=== PATIENT | male | born 1935 | race Caucasian/White ===

== ENCOUNTER 2016-05-25 09:54 | Inpatient (IN) | payer OTHER, MEDICARE ==
[2016-05-25] VITALS (9 sets, daily range): BP systolic 140–185; BP diastolic 72–82; PULSE 96–116; RESP 16–18; TEMP 97.8–98; O2SAT 94–97
[~2016-05-25] VITALS: Ht 172.7 cm; Wt 96.4 kg
[~2016-05-25 09:54] MED LIST: ALPR-138 PO; ASPI81; DOXE25CA2; MEVA40TA6; NABU750T; TAMS0.4C67 PO; VENTAER INH; Z.0.OXYGEN INH
[2016-05-25] MEDS ORDERED: TAMS5CAP PO (14:56)
[2016-05-25] MEDS ORDERED: VENTAER INH (14:56)
[2016-05-25] MEDS ORDERED: XANA1TAB2 PO (14:56)
[2016-05-25] MEDS ORDERED: OMEP20TA PO (14:56)
[2016-05-25] MEDS ORDERED: VITA10007 PO (14:56)
[2016-05-25] MEDS ORDERED: DOXE25CA2 PO (14:56)
[2016-05-25] MEDS ORDERED: MULT1TAB84 PO (14:56)
[2016-05-25] MEDS ORDERED: CALCTAB80 PO (14:56)
[2016-05-25] MEDS ORDERED: LIPI10TA PO (14:56)
[2016-05-25] MEDS ORDERED: DILT300C3 PO (14:56)
[2016-05-25] MEDS ORDERED: LATA0.002 EACH EYE (14:56)
[2016-05-25] MEDS ORDERED: ASPI81TA81 PO (14:56)
[2016-05-25] MEDS ORDERED: ADVA250A INH (14:56)
[2016-05-25] MEDS ORDERED: ASPIRIN 325 MG TAB PO SCH (15:00)
[2016-05-25] MEDS ORDERED: GLIM4TAB PO (15:06)
--- NOTE | 2016-05-25 15:34 | MB ---
cc: SWAPNIL SANDERS MD DATE OF CONSULTATION: 05/25/2016 REASON FOR ADMISSION: Non-ST elevation myocardial infarction with severe coronary disease requiring revascularization. HISTORY OF PRESENT ILLNESS: Mr. Acosta is a 80 year-old patient of mine who does have a history of hypertension, hyperlipidemia and chronic obstructive pulmonary disease. He apparently was experiencing ten days of intermittent chest pain that progressed and precipitated his admission to [facility]. The patient was found to have elevated troponin and underwent a cardiac catheterization which revealed a 50% left main and 90% mid circumflex stenosis. The patient was felt to be too high risk for intervention at [facility] and was subsequently transferred here to [place]. The patient is currently pain free. PAST MEDICAL HISTORY: 1. Significant for hypertension. 2. Hyperlipidemia. 3. Chronic obstructive pulmonary disease. 4. Sinus tachycardia. 5. Anxiety. 6. Obesity. 7. Benign prostatic hypertrophy. 8. Chronic kidney disease with baseline creatinine of 1.2. OUTPATIENT MEDICATIONS: Include; 1. Multiple vitamins. 2. Latanoprost 3. Xanax 1 mg p.o. twice a day. 4. Doxepin 25 mg twice a day. 5. Diltiazem ER 300 mg per day. 6. Omeprazole. 7. Atorvastatin 10 mg q hs. 8. Flomax 0.4 mg q hs. 9. Albuterol. 10. Advair. 11. Cyclosporin ophthalmiac emulsion. ALLERGIES NO KNOWN DRUG ALLERGIES FAMILY HISTORY: Noncontributory. SOCIAL HISTORY: The patient is a former smoker. REVIEW OF SYSTEMS Besides as mentioned in the history of present illness all 12 systems are negative. PHYSICAL EXAMINATION: VITAL SIGNS: Stable. IN GENERAL: He is an obese man who is in no apparent distress. NECK: His neck is free from jugular venous distention. LUNGS: The lungs are bilaterally clear to auscultation. CARDIOVASCULAR SYSTEM: He has a normal S1, S2. I did not appreciate any murmurs, rubs or gallops. ABDOMEN: The abdomen is soft. EXTREMITIES: The extremities are free from edema. CARDIAC CATHETERIZATION FILMS: These were reviewed with Dr. Blank. There is a mildly calcified left main with a mid 50% stenosis, it does give rise to an left anterior descending and circumflex. The left anterior descending has mild luminal irregularities. The circumflex otitis media does have a mid 99% stenosis with NANDINI 1 flow distally. This is about a 2-0 vessel. The right coronary is a dominant to hyper dominant vessel with mild luminal irregularities. Lab values from [facility] do show a blood urea nitrogen of 20 with a creatinine of 1.2, potassium of 4.2. The troponin value is not available to me. His glucose is 123. IMPRESSIONS: 1. Non-ST elevation, Myocardial infarction. The patient has had chest pain and elevated troponin, consistent with non-ST elevation myocardial infarction. He underwent catheterization which revealed a culprit circumflex lesion. I discussed the patient with Dr. Blank who feels that the patient would be best suited by stenting the circumflex and medially managing the left main. I agree this is the most reasonable approach as the left main does not appear to be flow limiting lesion. The risks, benefits and alternatives were discussed with the patient and he does wish to proceed despite a several percent risks of , myocardial infarction, cerebrovascular accident, bleeding and further renal impairment. We will schedule him for later today. 2. Hyperlipidemia, we will continue him on a statin. 3. Possible diabetes - the patients glucose was elevated and this will be managed by [facility]. Swapnil Sanders M.D. Kina /2:50 PM /3:00 PM
--- NOTE | 2016-05-25 15:48 | MB ---
cc: EMMA VARGHESE DATE OF CONSULTATION: 05/25/2016 HISTORY OF PRESENT ILLNESS: 80-year-old male patient of Dr. Cortes and Dr. Umu Lipscomb presented to the [facility] Emergency Department complaining of chest pain that started about ten days ago and then was worsening over the last ten days radiated to his left arm. He was found to have NSTEMI, elevated troponins at 1.15, pain occurred also with minimal exertion. Chronic shortness of breath. No nausea or vomiting. He underwent cardiac cath today by Dr. Adam Higgins and was found to have a 50% left main, 90% left circumflex with an ejection fraction of 50% to 60%. Cardiac risk factors include age, obesity, hypertension, hyperlipidemia, diabetes mellitus. We were consulted to evaluate for possible need for coronary artery bypass grafting to the left circumflex and/or the left anterior descending. PAST MEDICAL HISTORY: The past medical history includes: 1. COPD. 2. Apparent prior coronary artery disease with myocardial infarction in the past. 3. Irregular heart rhythm. 4. Diabetes mellitus. 5. Benign prostate hypertrophy. 6. Hypertension. 7. Hyperlipidemia. 8. He has had back surgery in the past. 9. Tonsillectomy. ALLERGIES: NO KNOWN ALLERGIES. HOME MEDICATIONS: 1. Vitamin C. 2. Vitamin D. 3. Aspirin 81. 4. Xalatan eye drops. 5. Xanax one p.o. three times a day. 6. Doxepin. 7. Diltiazem. 8. Omeprazole. 9. Atorvastatin. 10. Flomax. 11. Albuterol inhaler. 12. Advair Diskus. 13. Restasis eye drops. FAMILY HISTORY: Family history of heart disease. SOCIAL HISTORY: . Smokes one to two cigarettes and has smoked up to 1-1/2 packs for about 65 years. Retired in management. REVIEW OF SYSTEMS: GENERAL: In general no night sweats, fevers, heat and cold intolerance. SKIN: No psoriasis, itching or hives. HEAD, EYES, EARS, NOSE, THROAT: No blurred vision, hearing loss. RESPIRATORY: Positive for chronic shortness of breath. Occasional cough. CARDIOVASCULAR: As above in the history of present illness. GASTROINTESTINAL: No diarrhea, vomiting. GENITOURINARY: No burning, frequency, urgency. MEDICINE TEACHER: No history of TIA, CVA, seizure disorder. MUSCULOSKELETAL: No joint pain, stiffness. ENDOCRINE: Positive for diabetes. PHYSICAL EXAMINATION: VITAL SIGNS: On exam, blood pressure 112/60, heart rate of 102, temperature max 97. GENERAL: Patient is awake, alert and in no acute distress. HEAD, EYES, EARS, NOSE, THROAT: Head is normocephalic, atraumatic. Pupils equal and reactive. Oral mucosa pink, moist. NECK: The neck is supple. No JVD. HEART: Heart sounds S1, S2, regular rate and rhythm. No rubs, murmurs, gallops. LUNGS: Diminished in the bases, otherwise clear to auscultation. ABDOMEN: Abdomen is obese, soft and nontender. No masses or organomegaly. EXTREMITIES: Trace edema with good distal pulses. LABORATORY DATA: Lab work includes hemoglobin 13, hematocrit of 40, white cell count 4.7, platelet count 179,000. Sodium 137, potassium 3.9 BUN of 15, creatinine 1.1, glucose 131. Troponin 1.15. EKGS: EKG showed some S-T depression in the lateral leads. IMPRESSION: This is a 80-year-old patient with status post NSTEMI with elevated troponins and an abnormal EKG currently pain-free. The cardiac cath films have been reviewed by Dr. Stubbs and Dr. Emma Varghese. PLAN: At this time, the plan will be for percutaneous coronary intervention with stenting of the left circumflex. We will be available if needed if need for any coronary vascular surgery intervention required. Dictated by MARQUES Lui. MD JOSE Orellana/VINICIO /2:33 PM /3:47 PM
[2016-05-25] MEDS ORDERED: HEPARIN-NS/PF INJ 500 ML ONE (16:49)
[2016-05-25] MEDS ORDERED: MIDAZOLAM HCL 2 MG/2 ML VIAL ONE (17:16)
[2016-05-25] MEDS ORDERED: HEPARIN SODIUM - IV 10,000 UNITS/10 ML VIAL ONE (17:21)
[2016-05-25] MEDS ORDERED: BIVALIRUDIN 250 MG VIAL ONE (17:21)
[2016-05-25] MEDS ORDERED: STERILE WATER FOR INJECTION 10 ML VIAL ONE (17:22)
[2016-05-25] MEDS ORDERED: CLOPIDOGREL 300 MG TAB ONE (17:51)
[2016-05-25] MEDS ORDERED: IOHEXOL 350 MG/ML 100 ML BTL (for Cath Lab) OTHER ONE (18:00)
[2016-05-25] MEDS ORDERED: PRASUGREL 10 MG TAB ONE (18:00)
[2016-05-25] MEDS ORDERED: SODIUM CHLOR 0.9% 250 ML INJ 250 ML IV PRN (18:15)
[2016-05-25] MEDS ORDERED: LORazepam 2 MG/ML VIAL IV PRN (18:15)
[2016-05-25] MEDS ORDERED: ONDANSETRON HCL 4 MG/2 ML VIAL IV PRN (18:15)
[2016-05-25] MEDS ORDERED: oxyCODONE/ACETAMINOPHEN 5 MG/325 MG TAB PO PRN (18:15)
[2016-05-25] MEDS ORDERED: LIDOCAINE HCL 1% 50 ML VIAL INFIL PRN (18:15)
[2016-05-25] MEDS ORDERED: oxyCODONE/ACETAMINOPHEN 10 MG/325 MG TAB PO PRN (18:15)
[2016-05-25] MEDS ORDERED: SODIUM CHLORIDE 0.9% FLUSH 5 ML FLUSH IVF PRN (18:15)
[2016-05-25] MEDS ORDERED: ACETAMINOPHEN 325 MG TAB PO PRN (18:15)
[2016-05-25] MEDS ORDERED: METOCLOPRAMIDE HCL 10 MG/2 ML VIAL IV PRN (18:15)
[2016-05-25] MEDS ORDERED: ALPRAZolam 1 MG TAB PO PRN (18:15)
[2016-05-25] MEDS ORDERED: MORPHINE SULFATE 4 MG/ML INJ IV PUSH PRN (18:15)
[2016-05-25] MEDS ORDERED: ATROPINE SULFATE 1 MG/ML VIAL IV PRN (18:15)
[2016-05-25] MEDS ORDERED: ALBUTEROL SULFATE 90 MCG/ACT HFA 8 GM INHALER INH PRN (18:15)
[2016-05-25] MEDS ORDERED: MISC INFORMATION XX ONE (18:15)
[2016-05-25] MEDS ORDERED: PRASUGREL 10 MG TAB PO ONE (18:15)
[2016-05-25] MEDS ORDERED: BACITRACIN OINT 0.9 GM PKT TOP ONE (18:45)
[2016-05-25] MEDS ORDERED: cloNIDine HCL 0.2 MG TAB PO PRN (20:15)
[2016-05-25] MEDS: SODIUM CHLORIDE 0.9% FLUSH 5 ML FLUSH IVF SCH (20:36)
[2016-05-25] MEDS ORDERED: TAMSULOSIN HCL 0.4 MG CAP PO SCH (21:00)
[2016-05-25] MEDS ORDERED: ATORVASTATIN 10 MG TAB PO SCH (21:00)
[2016-05-25] MEDS ORDERED: LATANOPROST 0.005% OPHT SOLN 2.5 ML BTL EACH EYE SCH (21:00)
[2016-05-25] MEDS: BUDESONIDE-FORMOTEROL 160/4.5 MCG INHALER INH SCH (23:26)
[2016-05-25] MEDS: DOXEPIN HCL 25 MG CAP PO SCH (23:26)
[2016-05-26] VITALS (14 sets, daily range): BP systolic 115–156; BP diastolic 65–81; PULSE 60–109; RESP 16–18; TEMP 97.7–98; O2SAT 95–99
[2016-05-26 05:31] LABS: AUTOMATED NEUTROPHIL # 3.3 TH/MM3 (1.8-7.7); BASOPHIL % 0.3 % (0.0-2.0); EOSINOPHIL # 0.1 TH/MM3 (0-0.4); EOSINOPHIL % 1.5 % (0.0-4.0); HEMATOCRIT 37.7 % (39.0-51.0); LYMPH % 16.3 % (9.0-44.0); LYMPHOCYTE # 0.8 TH/MM3 (1.0-4.8); MEAN CELL VOLUME 90.6 FL (80.0-100.0); MEAN CORPUSCULAR HEMOGLOBIN 31.8 PG (27.0-34.0); MONO % 10.7 % (0.0-8.0); NEUT % 71.2 % (16.0-70.0); PLATELET COUNT 182 TH/MM3 (150-450); RED BLOOD COUNT 4.17 MIL/MM3 (4.50-5.90); RED CELL DISTRIBUTION WIDTH 15.7 % (11.6-17.2); WHITE BLOOD COUNT 4.7 TH/MM3 (4.0-11.0)
[2016-05-26 05:46] LABS: BICARBONATE 25.4 MEQ/L (21.0-32.0)
[2016-05-26 05:47] LABS: HEMO FLAGS AUTO DIFF
[2016-05-26 05:50] LABS: HDL CHOLESTEROL 34.7 MG/DL (40.0-60.0)
--- NOTE | 2016-05-26 06:28 | MA ---
cc: SWAPNIL SANDERS MD DATE: 05/25/2016 INDICATION Non-ST elevation myocardial infarction, with elevated cardiac enzymes from [facility]. PROCEDURES: Procedures selective coronary angiography and stenting of the circumflex. PROCEDURE IN DETAIL The patient gave informed consent. He is prepped in the usual sterile fashion. Subcutaneous injection of lidocaine was made in the right inguinal area. Access was achieved in the right femoral artery and a 6-Ivorian sheath was inserted. An angiogram was obtained through the sheath. An XB C 4.0, 6-Ivorian guide was utilized to engage the left main. Heparin and <<1:01>> was given to achieve a therapeutic ACT. The lesion was fairly with easily wired in the mid circumflex. Pre dilation was made with a 2.0 noncompliant balloon. We then deployed a 2.0 x 12 mm. Mini vision stent at 10 atmospheres. This was postdilated with the 2.0 noncompliant to 15 atmospheres with excellent angiographic results. There was NANDINI III flow 0% residual. The patient tolerated the procedure well and was stable. FINDINGS CORONARY ARTERIES: Left Main - this vessel has A mid 50% stenosis that is mildly calcific. LAD - this vessel is mild luminal irregularities. Circumflex - this vessel had a mid 90% stenosis and proximal 30% stenosis. Right coronary - this vessel was not engaged here but from his prior catheterization this morning is known to have a dominant vessel with mild luminal irregularities. Ejection fraction - again this was done earlier on an outside catheterization and his ejection fraction is known to be 55%. INTERVENTION RESULTS: Next successful stenting of the mid circumflex with a 2.0 x 12 mm mini vision stents, with excellent angiographic results. There was NANDINI III flow and 0% residual. IMPRESSION 1. Severe disease of the circumflex. 2. Successful stenting of the circumflex. 3. Note; this case was discussed extensively with Dr. Blank and the patient prior given his mild to moderate left main disease. Swapnil Sanders M.D. VIOLETA/champ /6:13 PM /6:19 AM
[2016-05-26 07:28] LABS: BANDS 2 % (0-6); METAMYELOCYTES 1 % (0-1); MYELOCYTES 3 % (0-0); NEUTROPHIL # MANUAL DIFF 3.4 TH/MM3 (1.8-7.7); PLATELET ESTIMATE SMEAR NORMAL (NORMAL); PLATELET MORPHOLOGY NORMAL (NORMAL); POLYS (SEG NEUTROPHILS) 67 % (16-70); SCAN/DIFF FINAL DIFF MANUAL; WBC DIFF SAMPLE 100
[2016-05-26] MEDS: DOXEPIN HCL 25 MG CAP PO SCH (08:25)
[2016-05-26] MEDS: SODIUM CHLORIDE 0.9% FLUSH 5 ML FLUSH IVF SCH (08:28)
[2016-05-26] MEDS ORDERED: ASPIRIN 81 MG CHEW TAB PO SCH (09:00)
[2016-05-26] MEDS ORDERED: GLIMEPIRIDE 4 MG TAB PO SCH (09:00)
[2016-05-26] MEDS ORDERED: PRASUGREL 10 MG TAB PO SCH (09:00)
[2016-05-26] MEDS: BUDESONIDE-FORMOTEROL 160/4.5 MCG INHALER INH SCH (09:00)
[2016-05-26] MEDS ORDERED: DILTIAZEM-CD 300 MG CAP ER PO SCH (09:00)
[2016-05-26] MEDS ORDERED: PANTOPRAZOLE SOD 20 MG DELAYED RELEASE TAB PO SCH (09:00)
--- NOTE | 2016-05-26 10:45 | PD.CARD.PN ---
Subjective Subjective Remarks PT without complaints and requests d/c Objective Medications Current Medications Medications (Trade) Dose Ordered Sig/Viral Route Start Time Stop Time Status Last Admin (NS Flush) 2 ml UNSCH PRN IVF 05/25/16 18:15 (NS Flush) 2 ml BID IVF 05/25/16 21:00 05/26/16 08:28 (Tylenol) 325 mg Q4H PRN PO 05/25/16 18:15 (Percocet 5-325 Mg) 1 tab Q4H PRN PO 05/25/16 18:15 (Percocet 10-325 Mg) 1 tab Q4H PRN PO 05/25/16 18:15 (Morphine Inj) 2 mg Q30M PRN IV PUSH 05/25/16 18:15 05/25/16 22:25 (Aspirin Chew) 162 mg DAILY PO 05/26/16 09:00 05/26/16 08:25 (Effient) 10 mg DAILY PO 05/26/16 09:00 05/26/16 08:28 (Ativan Inj) 0.5 mg UNSCH PRN IV 05/25/16 18:15 05/26/16 18:14 Atropine Sulfate 0.5 mg 0.5 mg UNSCH PRN IV 05/25/16 18:15 (NS 250 ml Inj) 250 ml @ 500 mls/hr ONCE PRN IV 05/25/16 18:15 05/26/16 18:14 (Reglan Inj) 10 mg Q4H PRN IV 05/25/16 18:15 (Zofran Inj) 4 mg Q4H PRN IV 05/25/16 18:15 (Xylocaine 1% Inj (50 ml)) 10 ml UNSCH PRN INFIL 05/25/16 18:15 05/26/16 18:14 (Proair Hfa Inh) 2 puff Q4H PRN INH 05/25/16 18:15 (Xanax) 1 mg BID PRN PO 05/25/16 18:15 (Lipitor) 10 mg HS PO 05/25/16 21:00 05/25/16 20:34 (Cardizem Cd) 300 mg DAILY PO 05/26/16 09:00 05/26/16 08:25 (SINEquan) 25 mg BID PO 05/25/16 21:00 05/26/16 08:25 (Amaryl) 4 mg DAILY PO 05/26/16 09:00 05/26/16 08:27 (Xalatan 0.005% Opth Soln) 1 drop HS EACH EYE 05/25/16 21:00 05/25/16 20:33 (Protonix) 20 mg DAILY PO 05/26/16 09:00 05/26/16 08:27 (Flomax) 0.4 mg HS PO 05/25/16 21:00 05/25/16 20:34 (Symbicort 160-4.5 Inh) 2 puff BID INH 05/25/16 21:00 05/26/16 09:00 (Catapres) 0.2 mg Q6H PRN PO 05/25/16 20:15 05/25/16 20:34 Vital Signs / I&O Vital Signs Date Time Temp Pulse Resp B/P Pulse Ox O2 Delivery O2 Flow Rate FiO2 05/26/16 06:00 90 05/26/16 05:00 96 05/26/16 04:00 100 05/26/16 04:00 98.0 96 16 115/65 95 05/26/16 03:00 96 05/26/16 02:00 98 05/26/16 01:00 98 05/26/16 00:00 98.0 109 16 135/81 99 05/26/16 00:00 109 05/26/16 00:00 103 05/25/16 23:00 110 05/25/16 22:00 116 05/25/16 21:00 114 05/25/16 20:00 98.0 113 16 185/82 97 05/25/16 20:00 110 05/25/16 20:00 110 05/25/16 18:38 108 05/25/16 16:01 96 05/25/16 15:48 97 05/25/16 15:42 97.8 97 18 140/72 94 05/25/16 14:32 96 I/O 05/25/16 05/25/16 05/25/16 05/26/16 05/26/16 05/26/16 06:59 14:59 22:59 06:59 14:59 22:59 Intake Total 0 ml 1040 ml Output Total 500 ml 1200 ml Balance -500 ml -160 ml Intake Oral 0 ml 240 ml IV Total 800 ml Output Urine Total 500 ml 1200 ml # Bowel Movements 0 Physical Exam GENERAL: Well developed, well nourished. No acute distress. HEENT: Jugular venous pressure is normal. CHEST: Lungs clear to auscultation bilaterally. Unlabored respiratory effort. CARDIAC: Regular rate and rhythm without S3, S4, or murmur. ABDOMEN: Soft, nontender, no hepatosplenomegaly. Bowel sounds present. EXTREMITIES: No clubbing, cyanosis, or edema. R Rad site c/d/i with good color and slight ecchymosis at site Right groin c/d/i 3x5 ring of ecchymosis, 2 + DP Laboratory Laboratory Tests Test 05/26/16 04:57 White Blood Count 4.7 TH/MM3 Red Blood Count 4.17 MIL/MM3 Hemoglobin 13.2 GM/DL Hematocrit 37.7 % Mean Corpuscular Volume 90.6 FL Mean Corpuscular Hemoglobin 31.8 PG Mean Corpuscular Hemoglobin 35.0 % Concent Red Cell Distribution Width 15.7 % Platelet Count 182 TH/MM3 Mean Platelet Volume 7.8 FL Neutrophils (%) (Auto) 71.2 % Lymphocytes (%) (Auto) 16.3 % Monocytes (%) (Auto) 10.7 % Eosinophils (%) (Auto) 1.5 % Basophils (%) (Auto) 0.3 % Neutrophils # (Auto) 3.3 TH/MM3 Lymphocytes # (Auto) 0.8 TH/MM3 Monocytes # (Auto) 0.5 TH/MM3 Eosinophils # (Auto) 0.1 TH/MM3 Basophils # (Auto) 0.0 TH/MM3 CBC Comment AUTO DIFF Differential Total Cells 100 Counted Neutrophils % (Manual) 67 % Band Neutrophils % 2 % Lymphocytes % 20 % Monocytes % 7 % Neutrophils # (Manual) 3.4 TH/MM3 Metamyelocytes 1 % Myelocytes 3 % Differential Comment FINAL DIFF MANUAL Platelet Estimate NORMAL Platelet Morphology Comment NORMAL Red Cell Morphology Comment NORMAL Sodium Level 141 MEQ/L Potassium Level 4.0 MEQ/L Chloride Level 108 MEQ/L Carbon Dioxide Level 25.4 MEQ/L Anion Gap 8 MEQ/L Blood Urea Nitrogen 11 MG/DL Creatinine 1.15 MG/DL Estimat Glomerular Filtration 61 ML/MIN Rate Random Glucose 103 MG/DL Calcium Level 8.2 MG/DL Triglycerides Level 101 MG/DL Cholesterol Level 81 MG/DL LDL Cholesterol 26 MG/DL HDL Cholesterol 34.7 MG/DL Cholesterol/HDL Ratio 2.33 RATIO Assessment and Plan Assessment and Plan NSTEMI- s/p stent Cx - doing great/ better then expected -aspirin, effient and datati -beta julienne relatively contra indicated with COPD LIPIDS- on statin HTN - fair control Dispo- ok for d/c folloe up in 7-10 days Zee Stubbs MD May 26, 2016 10:45
--- NOTE | 2016-05-26 11:42 | HHI.PR ---
Subjective Remarks Follow-up non-ST elevation HI/severe disease of the circumflex status post PCI with stenting 05/26/16-patient seen and examined, underwent successful stenting of the circumflex. Currently denies any chest pain or shortness of breath. Patient was cleared for discharge by cardiology Objective Vitals Vital Signs Date Time Temp Pulse Resp B/P Pulse Ox O2 Delivery O2 Flow Rate FiO2 05/26/16 07:30 97.7 92 18 156/78 96 05/26/16 06:00 90 05/26/16 05:00 96 05/26/16 04:00 100 05/26/16 04:00 98.0 96 16 115/65 95 05/26/16 03:00 96 05/26/16 02:00 98 05/26/16 01:00 98 05/26/16 00:00 98.0 109 16 135/81 99 05/26/16 00:00 109 05/26/16 00:00 103 05/25/16 23:00 110 05/25/16 22:00 116 05/25/16 21:00 114 05/25/16 20:00 98.0 113 16 185/82 97 05/25/16 20:00 110 05/25/16 20:00 110 05/25/16 18:38 108 05/25/16 16:01 96 05/25/16 15:48 97 05/25/16 15:42 97.8 97 18 140/72 94 05/25/16 14:32 96 I/O 05/25/16 05/25/16 05/25/16 05/26/16 05/26/16 05/26/16 07:00 15:00 23:00 07:00 15:00 23:00 Intake Total 0 ml 1040 ml Output Total 500 ml 1200 ml Balance -500 ml -160 ml Intake Oral 0 ml 240 ml IV Total 800 ml Output Urine Total 500 ml 1200 ml # Bowel Movements 0 Result Diagram: 05/26/16 0457 05/26/16 0457 Objective Remarks GENERAL: NAD SKIN: Warm and dry. HEAD: Normocephalic. EYES: No scleral icterus. No injection or drainage. NECK: Supple, trachea midline. No JVD or lymphadenopathy. CARDIOVASCULAR: Regular rate and rhythm without murmurs, gallops, or rubs. RESPIRATORY: Breath sounds equal bilaterally. No accessory muscle use. GASTROINTESTINAL: Abdomen soft, non-tender, nondistended. MUSCULOSKELETAL: No cyanosis, or edema. BACK: Nontender without obvious deformity. No CVA tenderness. Procedures PCI with stenting of circumflex 05/25/16 A/P Problem List: (1) Non-ST elevation HI (NSTEMI) ICD Code: I21.4 Status: Acute (2) Diabetes type 2, controlled ICD Code: E11.9 Status: Acute (3) COPD (chronic obstructive pulmonary disease) ICD Code: J44.9 Status: Acute Assessment and Plan 80-year-old male with Non-ST elevation HI with severe disease of the circumflex: Patient underwent successful stenting of the circumflex 05/25/16 by cardiology. Cardiac thoracic surgery was consulted initially secondary to 50% left main and 90% mid circumflex stenosis after left heart catheterization; however PCI was recommended. Stable on aspirin 162 mg daily, Effient 10 mg daily, Lipitor 40 mg at bedtime Diabetes type 2: Continue outpatient medication Other chronic medical conditions: Continue outpatient medications Patient has been cleared by cardiology for discharge, therefore he will be discharged home. Discharge Planning Discharge patient to home Condition on discharge: Improved ADA Diet as tolerated Ad Cheryl activity Rx written: Aspirin 162 mg daily, Effient 10 mg daily, Lipitor 40 mg daily Follow-up with primary care physician in 1 week Cardiology Grey Ferrera MD May 26, 2016 11:42
[2016-05-26] MEDS ORDERED: PRAS10TA PO (11:50)
[2016-05-26] MEDS ORDERED: LIPI40TA PO (11:50)
[2016-05-26] MEDS ORDERED: Aspirin Chew PO (11:50)
--- NOTE | 2016-05-26 19:14 | EKG ---
Date Performed: 05/26/2016 Time Performed: 06:40:30 PTAGE: 80 years EKG: Sinus rhythm Lateral T wave changes are nonspecific Since previous tracing, no significant change noted Borderlin e ECG PREVIOUS TRACING : 05/25/2016 21.20 DOCTOR: Alok Magaña Interpretating Date/Time 05/26/2016 19:14:14
--- NOTE | 2016-05-26 19:14 | EKG ---
Date Performed: 05/25/2016 Time Performed: 15:32:08 PTAGE: 80 years EKG: Sinus rhythm Lateral T wave changes are nonspecific Since previous tracing, no significant change noted Borderlin e ECG PREVIOUS TRACING : 11/29/2008 06.28 DOCTOR: Alok Magaña Interpretating Date/Time 05/26/2016 19:13:24
--- NOTE | 2016-05-26 19:14 | EKG ---
Date Performed: 05/25/2016 Time Performed: 21:20:46 PTAGE: 80 years EKG: Sinus tachycardia Poor R wave progression - probable normal variant Septal and lateral ST-T changes are nonspecific Since previous tracing, no significant change noted Borderline ECG PREVIOUS TRACING : 05/25/2016 15.32 DOCTOR: Alok Magaña Interpretating Date/Time 05/26/2016 19:14:03
[2016-05-26] MEDS ORDERED: ATORVASTATIN 40 MG TAB PO SCH (21:00)
== END 2016-05-26 12:48 | disposition home or self-care (01) | DRG 249 ==
LOC: HCIS 12:45
PROVIDERS: ADMIT Internal Medicine Interventional Cardiology; ATTEND Internal Medicine Interventional Cardiology
PROC: B2111ZZ Fluoroscopy of Multiple Coronary Arteries using Low Osmolar Contrast (ICD-10-PCS; 2016-05-25)
PROC: 02703DZ Dilation of Coronary Artery, One Artery with Intraluminal Device, Percutaneous Approach (ICD-10-PCS; principal; 2016-05-25 16:15)
DX: I21.4 Non-ST elevation (NSTEMI) myocardial infarction (principal); J44.9 Chronic obstructive pulmonary disease, unspecified; E11.9 Type 2 diabetes mellitus without complications; I12.9 Hypertensive chronic kidney disease with stage 1 through stage 4 chronic kidney disease, or unspecified chronic kidney disease; N18.9 Chronic kidney disease, unspecified; E66.9 Obesity, unspecified; Z68.32 Body mass index [BMI] 32.0-32.9, adult; E78.5 Hyperlipidemia, unspecified; I25.10 Atherosclerotic heart disease of native coronary artery without angina pectoris; I25.2 Old myocardial infarction; Z79.82 Long term (current) use of aspirin; N40.0 Benign prostatic hyperplasia without lower urinary tract symptoms; F17.210 Nicotine dependence, cigarettes, uncomplicated; F41.9 Anxiety disorder, unspecified
CPT/HCPCS: 80048; 80061; 85002; 85007; 85027; 85347; 92928; 93005; 93454; C1725; C1769; C1876; C1887; C1893; J0583; J1644; J2250; J2270; J3010; Q9967

== ENCOUNTER 2016-09-17 20:24 | Observation (INO) | payer MEDICARE, OTHER ==
[~2016-09-17] VITALS: Ht 172.7 cm; Wt 98.0 kg
[~2016-09-17 20:24] MED LIST changes: +ADVA250A INH; -ALPR-138 PO; -ASPI81; +Aspirin Chew PO; +CALCTAB80 PO; +DILT300C3 PO; -DOXE25CA2; +DOXE25CA2 PO; +GLIM4TAB PO; +LATA0.002 EACH EYE; +LIPI40TA PO; -MEVA40TA6; +MULT1TAB84 PO; -NABU750T; +OMEP20TA PO; +PRAS10TA PO; -TAMS0.4C67 PO; +TAMS5CAP PO; +VITA10007 PO; +XANA1TAB2 PO; -Z.0.OXYGEN INH
[2016-09-17 20:38] VITALS: BP 136/61; PULSE 89; RESP 22; TEMP 98.7; O2SAT 98
[2016-09-17] MEDS ORDERED: IPRA0.02 NEB (21:07)
[2016-09-17] MEDS ORDERED: MELA5TAB15 PO (21:07)
[2016-09-17] MEDS ORDERED: ATOR10TA15 PO (21:07)
[2016-09-17] MEDS ORDERED: CHOL5000 PO (21:07)
[2016-09-17] MEDS ORDERED: FLUT50SP EACH NARE (21:07)
[2016-09-17] MEDS ORDERED: MUCU400T2 PO (21:07)
[2016-09-17] MEDS ORDERED: BENZ1CAP34 PO (21:07)
--- NOTE | 2016-09-17 21:10 | PD ---
HPI Chief Complaint: General Weakness Time Seen by Provider: 20:35 Travel History International Travel<30 days: No Contact w/Intl Traveler<30days: No Traveled to known affect area: No History of Present Illness HPI The patient is an 81 year old male who presents to the [facility] emergency department with a history of generalized weakness that he reports began just prior to arrival. The patient reports that he has a history of COPD. He reports that he normally uses 2 L of nasal cannula O2 at night. The patient reports that he checked his home oxygen when he became weak and his oxygen saturation was normal, however his pulse was in the 40s. He reports that he got up and walked around to try to increase his pulse. He also called ambulance services. Upon ambulance services arrival the patient was found to be in a sinus tachycardia in the low 100s. The patient denies having any chest pain, chest pressure, shortness of breath, diaphoresis, or lightheaded sensation with this. He does report that he took an aspirin earlier today. He also is on Effient. He reports that he was given 3 sublingual nitroglycerin by ambulance services. The patient on arrival is noted to have a heart rate in the 80s to 90s. The patient denies having any weakness at this time. The patient denies having any worsening congestion or increased productivity to his cough. The patient denies any recent fevers, chest pain, shortness of breath, abdominal pain, vomiting, diarrhea, urinary symptoms, one-sided weakness, slurred speech, difficulty with word finding ability, headache, vision changes, or numbness to his extremities. Incidentally on review of systems, the patient reports that 2 weeks after his admission to the hospital for cardiac catheterization and stent placement the patient was working out in the garden with his . He reports that he fell backwards striking the back of his head and his right arm. The patient reports that since then he has had headache at the base of the skull, intermittent neck pain and right arm pain. [facility] Past Medical History Narrative Medical The patient's past medical history is significant for coronary artery disease status post cardiac catheterization with stent placement by Dr. Stubbs in May 2016, history of hyperlipidemia, hypertension, COPD, history of peptic ulcer disease, history of arthritis. The patient reports that he's had 2 prior cervical spine surgeries. The most recent cervical spine surgery was in 2003. Hx Anticoagulant Therapy: Yes Arthritis: Yes Cardiovascular Problems: Yes High Cholesterol: Yes COPD: Yes Diminished Hearing: No Gastrointestinal Disorders: Yes Genitourinary: Yes (BPH) Headaches: Yes Hypertension: Yes Musculoskeletal: Yes Neurologic: Yes Respiratory: Yes (COPD) Sleep Apnea: Yes (PT SLEEPD WITH O2 AT NIGHT) Ulcer: Yes PNEUMOCCOCAL Vaccine (Year): 2008 Past Surgical History Narrative Surgical The patient's past surgical history is significant for a cardiac catheterization with stent placement, history of 2 prior cervical spine surgeries, history of a tonsillectomy. Tonsillectomy: Yes (As child) Other Surgery: Yes (DISC REMOVAL C5-6, TONSILS,) Social History Alcohol Use: No Tobacco Use: No (quit) Substance Use: No Allergies-Medications (Allergen,Severity, Reaction): Coded Allergies: No Known Allergies (Verified , 11/28/13) Reported Meds & Prescriptions Reported Meds & Active Scripts Active Hydralazine HCl 25 Mg Tablet 25 Mg PO Q8HR PRN Cardizem CD 24 HR (Diltiazem CD 24 HR) 240 Mg Caper 240 Mg PO DAILY Effient (Prasugrel) 10 Mg Tab 10 Mg PO DAILY [Aspirin Chew] 81 MG Chew 162 Mg PO DAILY Reported Tudorza Pressair Inh (Aclidinium [place] Inh) 400 Mcg/Act Aerp 1 Puff INH BID Thera-M (Multiple Vitamins W/ Minerals) 1 Tab 1 Tab PO DAILY Mucus Relief (Guaifenesin) 400 Mg Tab 1 Tab PO DAILY Melatonin 5 Mg Tab 5 Mg PO HS Vitamin D3 (Cholecalciferol) 5,000 Unit Cap 5,000 Units PO DAILY Fluticasone Nasal [place] 50 Mcg/Act Naspr 50 Mcg EACH NARE BID 50 mcg/spray Benzonatate 200 Mg Cap 200 Mg PO TID PRN Ipratropium Neb (Ipratropium [place]) 0.5 Mg/2.5 Ml Amp 0.5 Mg NEB Q6HR NEB PRN Atorvastatin (Atorvastatin Calcium) 10 Mg Tab 10 Mg PO HS Glimepiride 4 Mg Tab 4 Mg PO DAILY Take with breakfast or first main meal Latanoprost Opth Drops (Latanoprost) 0.005% Drops 1 Drop EACH EYE HS Refrigerate until opened. Calcium 1000 + D (Calcium Carbonate-Cholecalciferol) 1,000-800 Mg-Unit Tab 1 Tab PO DAILY Xanax (Alprazolam) 1 Mg Tab 1 Mg PO BID PRN Omeprazole 20 Mg Tab 20 Mg PO DAILY Flomax (Tamsulosin HCl) 0.4 Mg Cap 0.4 Mg PO HS Ventolin Hfa 18 GM Inh (Albuterol Sulfate) 90 Mcg/Act Aer 2 Puff INH Q4H PRN Advair Diskus Inh (Fluticasone-Salmeterol Inh) 250-50 Mcg/Blist Aer 1 Puff INH BID Rinse mouth after use. Review of Systems Except as stated in HPI: all other systems reviewed are Neg General / Constitutional: No: Fever Eyes: No: Visual changes HENT: Positive: Headaches, Neck Pain, No: Rhinorrhea, Congestion, Neck Stiffness Cardiovascular: Positive: Dyspnea on exertion (chronic dyspnea on exertion related to COPD), No: Chest Pain or Discomfort Respiratory: Positive: Cough (chronic), No: Shortness of Breath Gastrointestinal: No: Nausea, Vomiting, Diarrhea, Abdominal Pain, Changes in Bowel Habits Genitourinary: No: Dysuria Musculoskeletal: Positive: Myalgias, Arthralgias, Pain Skin: No Rash Neurologic: Positive: Weakness (generalized weakness prior to arrival), Headache, No: Focal Abnormalities, Change in Mentation, Slurred Speech, Sensory Disturbance Psychiatric: No: Depression Endocrine: No: Polydipsia Hematologic/Lymphatic: No: Easy Bruising Physical Exam Narrative General: The patient is well-developed well-nourished male in no acute distress. Head and Neck exam: Head is normocephalic atraumatic. Eyes: EOMI, pupils are equal round and reactive to light. Nose: Midline septum with pink mucous membranes Mouth: Dentition unremarkable. Moist mucus membranes. Posterior oropharynx is not erythematous. No tonsillar hypertrophy. Uvula midline. Airway patent. Neck: No palpable lymphadenopathy. No nuchal rigidity. No thyromegaly. The patient reports having discomfort on palpation along the upper cervical spine, and occipital scalp/skull. There is no crepitus or step-off. No erythema or ecchymosis. Cardiovascular: Regular rate and rhythm without murmurs, gallops, or rubs. No pulse deficit to the extremities as I'm obtaining his auscultation and palpation of his radial artery. Lungs: Clear to auscultation bilaterally. No wheezes, rhonchi, or rales. Abdomen: Soft, without tenderness to palpation in all 4 quadrants of the abdomen. No guarding, rebound, or rigidity. Normal bowel sounds are audible. No tenderness on palpation of McBurney's point. Negative [place] sign. Extremities: No clubbing or cyanosis. The patient has trace pedal edema bilateral lower extremities. 2+ pulses in all 4 extremities. No calf tenderness on palpation. Back: No spinous process tenderness to palpation. No costovertebral angle tenderness to palpation. Neurologic Exam: Cranial nerves 2-12 were intact on exam. Strength is 5/5 in all 4 extremities. No sensory deficits noted. Skin Exam: No rash noted. Intact skin that is warm and dry. Data Data Last Documented VS Vital Signs Date Time Temp Pulse Resp B/P Pulse Ox O2 Delivery O2 Flow Rate FiO2 09/17/16 20:43 98 Nasal Cannula 2 09/17/16 20:38 98.7 89 22 136/61 Orders Electrocardiogram (09/17/16 20:46) Complete Blood Count With Diff (09/17/16 20:46) Comprehensive Metabolic Panel (09/17/16 20:46) Creatine Kinase (Cpk) (09/17/16 20:46) Ckmb (Isoenzyme) Profile (09/17/16 20:46) Troponin I (09/17/16 20:46) B-Type Natriuretic Peptide (09/17/16 20:46) Prothrombin Time / Inr (Pt) (09/17/16 20:46) Act Partial Throm Time (Ptt) (09/17/16 20:46) Lipase (09/17/16 20:46) Urinalysis - C+S If Indicated (09/17/16 20:46) Magnesium (Mg) (09/17/16 20:46) Thyroid Stimulating Hormone (09/17/16 20:46) Chest, Single Ap (09/17/16 20:46) Ct Brain W/O Iv Contrast(Rout) (09/17/16 20:46) Iv Access Insert/Monitor (09/17/16 20:46) Ecg Monitoring (09/17/16 20:46) Oximetry (09/17/16 20:46) Ct Cerv Spine W/O Contrast (09/17/16 ) Sodium Chlorid 0.9% 500 Ml Inj (Ns 500 M (09/17/16 21:45) Admit Order (Ed Use Only) (09/17/16 23:59) Labs Laboratory Tests Test 09/17/16 20:50 White Blood Count 5.8 TH/MM3 Red Blood Count 4.81 MIL/MM3 Hemoglobin 15.1 GM/DL Hematocrit 43.9 % Mean Corpuscular Volume 91.3 FL Mean Corpuscular Hemoglobin 31.3 PG Mean Corpuscular Hemoglobin 34.3 % Concent Red Cell Distribution Width 13.6 % Platelet Count 186 TH/MM3 Mean Platelet Volume 8.5 FL Neutrophils (%) (Auto) 65.4 % Lymphocytes (%) (Auto) 21.6 % Monocytes (%) (Auto) 9.8 % Eosinophils (%) (Auto) 2.8 % Basophils (%) (Auto) 0.4 % Neutrophils # (Auto) 3.8 TH/MM3 Lymphocytes # (Auto) 1.3 TH/MM3 Monocytes # (Auto) 0.6 TH/MM3 Eosinophils # (Auto) 0.2 TH/MM3 Basophils # (Auto) 0.0 TH/MM3 CBC Comment DIFF FINAL Differential Comment Prothrombin Time 11.2 SEC Prothromb Time International 1.0 RATIO Ratio Activated Partial 28.1 SEC Thromboplast Time Sodium Level 142 MEQ/L Potassium Level 4.1 MEQ/L Chloride Level 109 MEQ/L Carbon Dioxide Level 25.3 MEQ/L Anion Gap 8 MEQ/L Blood Urea Nitrogen 19 MG/DL Creatinine 1.82 MG/DL Estimat Glomerular Filtration 36 ML/MIN Rate Random Glucose 108 MG/DL Calcium Level 9.0 MG/DL Magnesium Level 2.2 MG/DL Total Bilirubin 0.3 MG/DL Aspartate Amino Transf 21 U/L (AST/SGOT) Alanine Aminotransferase 39 U/L (ALT/SGPT) Alkaline Phosphatase 53 U/L Total Creatine Kinase 90 U/L Troponin I LESS THAN 0.02 NG/ML B-Type Natriuretic Peptide 20 PG/ML Total Protein 6.4 GM/DL Albumin 3.4 GM/DL Lipase 191 U/L Thyroid Stimulating Hormone 2.550 uIU/ML [address] [place] [address] Medical Decision Making Medical Screen Exam Complete: Yes Emergency Medical Condition: Yes Medical Record Reviewed: Yes Interpretation(s) Last Impressions Head CT 09/17/162045 Signed Impressions: Service Date/Time: Saturday, September 17, 2016 20:59 - CONCLUSION: Negative noncontrast CT. Gauarng Aponte MD Chest X-Ray 09/17/16 2046 Signed Impressions: Service Date/Time: Saturday, September 17, 2016 21:22 - CONCLUSION: 1. Mild patchy opacity at the left lung base which could represent atelectasis or scarring. Infiltrate is also a consideration. 2. Hyperinflation consistent with underlying emphysema. Gaurang Aponte MD Cervical Spine CT 09/17/16 0000 Signed Impressions: Service Date/Time: Saturday, September 17, 2016 21:01 - CONCLUSION: 1. No acute fracture or malalignment. 2. Status post remote fusion which is solid at the C3-C6 level. Hypertrophic ridging is noted at the C3-4 and C5-6 levels with mass effect on the anterior thecal sac. 3. Degenerative disc changes C2-3 and C67 with mild disc osteophyte complexes. Gaurang Aponte MD Differential Diagnosis Acute coronary syndrome, versus cardiac arrhythmia, versus electrolyte derangements, versus infectious process Narrative Course During the course of the patients emergency department visit, the patients history, examination, and differential diagnosis were reviewed with the patient. The patient had IV access obtained and blood work sent for analysis. The patient was on a director of it operations with oximetry and blood pressure monitoring. An EKG was done on arrival. The patient's EKG reveals a sinus rhythm with occasional supraventricular premature complexes, heart rate of 87, QRS duration 86 ms, QTC [address] segment elevation or depression. T waves are inverted in aVL. The patient reportedly took aspirin prior to arrival. The patient was also given sublingual nitroglycerin 3 prior to arrival by ambulance services. The patient denies having any chest pain at this time. The patient was continued on his 2 L nasal cannula O2. The patients laboratory studies were reviewed and remarkable for a CBC that is unremarkable, CMP is remarkable for chloride of 109, BUN 19, creatinine 1.82, glucose 108, CPK 90, troponin I less than 0.02, BNP 20, lipase 191, TSH 2.55, PT PTT within normal limits Radiology studies were reviewed and remarkable for a chest x-ray that shows a mild patchy opacity of the left lung base which could represent atelectasis or scarring, infiltrate is also a consideration, hyperinflation consistent with underlying emphysema, CT scan of the brain was negative. CT scan of the C- spine showed no acute fracture or malalignment. Given the patient's elevated BUN and creatinine compared to previously associated with generalized weakness, the patient's symptoms could be related to mild dehydration. The patient was given normal saline a 500 mL bolus. The patient will be admitted for observation. The patient reportedly did have an episode where his heart rate dropped on his home monitor. The patient will be maintained on telemetry through the night. The patients results were discussed with the patient, including the plan of care. I explained that further testing and/ or monitoring is indicated based on the patients history, examination, and/ or laboratory findings. Therefore, I recommended admission for additional evaluation. The patient expressed understanding and was agreeable with this plan. The patient was admitted to the hospital in stable condition and [facility] Physician Communication Physician Communication The patient's case was discussed with Dr. Lopez who did agree to admit the patient for further evaluation and treatment at this time. Diagnosis Primary Impression: Generalized weakness Additional Impressions: Dehydration Bradycardia Admitting Information Admitting Physician Requests: Observation Scripts Hydralazine HCl 25 Mg [id number] Mg PO Q8HR PRN (SBP>160, DBP>90) #30 TAB Prov:Lázaro Carrasquillo 09/18/16 Diltiazem CD 24 HR (Cardizem CD 24 HR)240 Mg [id number] Mg PO DAILY #30 CAP Prov:Lázaro Carrasquillo 09/18/16 Tiffany Meng MD Sep 17, 2016 21:10
--- NOTE | 2016-09-17 21:10 | RADRPT ---
EXAM DATE/TIME: 09/17/2016 20:59 [facility] COMPARISON: No previous studies available for comparison. INDICATIONS : Weakness RADIATION DOSE: 56.35 CTDIvol (mGy) MEDICAL HISTORY : Cardiovascular disease. Hypertension. Chronic obstructive pulmonary disease. SURGICAL HISTORY : Tonsillectomy. Discectomy, cervical.Cerivcal laminectomy. ENCOUNTER: Initial ACUITY: 1 day PAIN SCALE: 0/10 LOCATION: cranial TECHNIQUE: Multiple contiguous axial images were obtained of the head. Using automated exposure control and adj ustment of the mA and/or kV according to patient size, radiation dose was kept as low as reasonably a chievable to obtain optimal diagnostic quality images. DICOM format image data is available electro nically for review and comparison. FINDINGS: CEREBRUM: The ventricles are normal for age. No evidence of midline shift, mass lesion, hemorrhage or acute in farction. No extra-axial fluid collections are seen. POSTERIOR FOSSA: The cerebellum and brainstem are intact. The 4th ventricle is midline. The cerebellopontine angle i s unremarkable. EXTRACRANIAL: The visualized portion of the orbits is intact. SKULL: The calvaria is intact. No evidence of skull fracture. CONCLUSION: Negative noncontrast CT. Gaurang Aponte MD on September 17, 2016 at 21:07 Board Certified Radiologist. This report was verified electronically.
[2016-09-17 21:12] LABS: AUTOMATED NEUTROPHIL # 3.8 TH/MM3 (1.8-7.7); BASOPHIL % 0.4 % (0.0-2.0); EOSINOPHIL # 0.2 TH/MM3 (0-0.4); EOSINOPHIL % 2.8 % (0.0-4.0); HEMATOCRIT 43.9 % (39.0-51.0); HEMO FLAGS DIFF FINAL; LYMPH % 21.6 % (9.0-44.0); LYMPHOCYTE # 1.3 TH/MM3 (1.0-4.8); MEAN CELL VOLUME 91.3 FL (80.0-100.0); MEAN CORPUSCULAR HEMOGLOBIN 31.3 PG (27.0-34.0); MEAN CORPUSCULAR HGB CONC 34.3 % (32.0-36.0); MONO % 9.8 % (0.0-8.0); NEUT % 65.4 % (16.0-70.0); PLATELET COUNT 186 TH/MM3 (150-450); RED BLOOD COUNT 4.81 MIL/MM3 (4.50-5.90); RED CELL DISTRIBUTION WIDTH 13.6 % (11.6-17.2); WHITE BLOOD COUNT 5.8 TH/MM3 (4.0-11.0)
[2016-09-17 21:20] LABS: APTT (PATIENT) 28.1 SEC (24.3-30.1); PROTHROMBIN TIME - PATIENT 11.2 SEC (9.8-11.6)
--- NOTE | 2016-09-17 21:29 | RADRPT ---
EXAM DATE/TIME: 09/17/2016 21:01 [facility] COMPARISON: No previous studies available for comparison. INDICATIONS : Weakness RADIATION DOSE: 34.96 CTDIvol (mGy) MEDICAL HISTORY : Chronic obstructive pulmonary disease. Cardiovascular disease Hypertension. SURGICAL HISTORY : Discectomy, cervical. Tonsillectomy.Laminectomy, cervical ENCOUNTER: Initial ACUITY: 1 day PAIN SCALE: 0/10 LOCATION: neck TECHNIQUE: Volumetric scanning of the cervical spine was performed. Multiplanar reconstructions in the sagittal, coronal and oblique axial planes were performed. Using automated exposure control and adjustment o f the mA and/or kV according to patient size, radiation dose was kept as low as reasonably achievable to obtain optimal diagnostic quality images. DICOM format image data is available electronically f or review and comparison. FINDINGS: VERTEBRAE: Normal vertebral body height. Status post solid fusion at the C3-C6 level the screw-plate fixation de vice in located anteriorly at the C3-C5 level. Degenerative changes present at the C2-3 and C6-7 leve ls with mild disc space narrowing and hypertrophic change. ALIGNMENT: No evidence of subluxation. C2-C3: There is a mild posterior disc osteophyte complex with mild mass effect on the anterior thecal sac no mass effect upon the cord. The neural foramina are bilaterally patent. C3-C4: The bony spinal canal is normal in size. Hypertrophic posterior ridging is noted with mass effect on the anterior thecal sac. Status post anterior fusion. The neural foramina are bilaterally patent. C4-C5: The bony spinal canal is normal in size. Status post anterior fusion. No evidence of disc bulge or h erniation. The neural foramina are bilaterally patent. C5-C6: Status post fusion. Hypertrophic ridging is noted with mass effect on the anterior thecal sac with no mass effect upon the cord.. No evidence of disc bulge or herniation. The neural foramina are bilate rally patent. C6-C7: Degenerative disc change with mild disc osteophyte complex with mild flattening the anterior thecal s ac no focal protrusion.. No evidence of disc bulge or herniation. The neural foramina are bilateral ly patent. C7-T1: The bony spinal canal is normal in size. No evidence of disc bulge or herniation. The neural forami na are bilaterally patent. CONCLUSION: 1. No acute fracture or malalignment. 2. Status post remote fusion which is solid at the C3-C6 level. Hypertrophic ridging is noted at the C3-4 and C5-6 levels with mass effect on the anterior thecal sac. 3. Degenerative disc changes C2-3 and C67 with mild disc osteophyte complexes. Gaurang Aponte MD on September 17, 2016 at 21:22 Board Certified Radiologist. This report was verified electronically.
[2016-09-17 21:30] LABS: ALT (GPT) 39 U/L (12-78); ANION GAP 8 MEQ/L (5-15); AST (GOT) 21 U/L (15-37); BICARBONATE 25.3 MEQ/L (21.0-32.0); BLOOD UREA NITROGEN 19 MG/DL (7-18); CHLORIDE 109 MEQ/L (98-107); GLOMERULAR FILTRATION RATE 36 ML/MIN (>89); MAGNESIUM 2.2 MG/DL (1.5-2.5); POTASSIUM 4.1 MEQ/L (3.5-5.1); SODIUM (NA) 142 MEQ/L (136-145)
--- NOTE | 2016-09-17 21:37 | RADRPT ---
EXAM DATE/TIME: 09/17/2016 21:22 [facility] COMPARISON: No previous studies available for comparison. INDICATIONS : Short of breath and palpitations. MEDICAL HISTORY : Hypertension. Chronic obstructive pulmonary disease. Cardiovascular disease SURGICAL HISTORY : Discectomy, cervical. Tonsillectomy. Laminectomy, cervical. Stent placement. ENCOUNTER: Initial ACUITY: 1 day PAIN SCORE: 7/10 LOCATION: Bilateral chest FINDINGS: A single view of the chest demonstrates the lungs to be symmetrically hyperinflated without evidence of mass, confluent infiltrate or effusion. There is mild patchy opacity at the left lung base. The ca rdiomediastinal contours are unremarkable. Osseous structures are intact. CONCLUSION: 1. Mild patchy opacity at the left lung base which could represent atelectasis or scarring. Infiltrat e is also a consideration. 2. Hyperinflation consistent with underlying emphysema. Gaurang Aponte MD on September 17, 2016 at 21:34 Board Certified Radiologist. This report was verified electronically.
[2016-09-17 21:40] LABS: ALKALINE PHOSPHATASE 53 U/L (45-117); TOTAL BILIRUBIN ADULT 0.3 MG/DL (0.2-1.0)
[2016-09-17] MEDS ORDERED: SODIUM CHLORID 0.9% 500 ML INJ 500 ML IV ONE (21:45)
[2016-09-17] MEDS ORDERED: THERTAB17 PO (21:45)
[2016-09-17 21:49] LABS: CREATINE KINASE 90 U/L (39-308)
[2016-09-18] VITALS (9 sets, daily range): BP systolic 113–153; BP diastolic 57–87; PULSE 74–83; RESP 18–22; TEMP 97.6–98.6; O2SAT 93–98
[2016-09-18] MEDS ORDERED: SODIUM CHLORIDE 0.9% FLUSH 10 ML FLUSH IV FLUSH PRN (01:30)
[2016-09-18] MEDS ORDERED: NALOXONE HCL 0.4 MG/ML AMP IV PRN (01:30)
[2016-09-18] MEDS ORDERED: ACLI1AER2 INH (01:52)
[2016-09-18] MEDS ORDERED: ALPRAZolam 1 MG TAB PO ONE (02:15)
[2016-09-18] MEDS ORDERED: TAMSULOSIN HCL 0.4 MG CAP PO ONE (02:15)
--- NOTE | 2016-09-18 05:08 | HHI.HP ---
HPI Service [facility] Primary Care Physician No Primary Care Physician Admission Diagnosis Generalized weakness, dehydration, bradycardia-resolved Diagnoses: Chief Complaint: irregular heart rate Travel History International Travel<30 Days: No Contact w/Intl Traveler <30 Da: No Traveled to Known Affected Are: No History of Present Illness Written by Concetta Myers, acting as scribe for Dr. Lopez on 09/18/16 at 05:08. The patient states he came to the hospital because of irregular heart rate on home pulse oximeter 47 - 110 bpm. He was not feeling good, put on oxygen, and checked his saturation. States he was feeling generalized weakness and associated this with low heart rate on oximeter. He called his who came home and called ambulance. Denies syncope, unilateral weakness, nausea, or vomiting. The patient states that the erector operator instructed his to give him an aspirin and 3 nitroglycerin tablets but he adamantly denies complaining of chest pain or shortness of breath. He denies receiving any nitroglycerin from the EMS personnel upon their arrival. Denies fever, dysuria, hematuria, bloody or dark stools. Denies any recent blood pressure medication changes. Review of Systems Except as stated in HPI: all other systems reviewed are Neg Past Family Social History Past Medical History Hypertension Type 2 Diabetes Mellitus CAD with stent placement in May COPD VT LI requiring home CPAP Denies CHF, atrial fibrillation, liver or kidney problems, DVT, PE, CVA, seizures, thyroid problems, or cancers . Past Surgical History Cervical fusion x 2 different surgeries . Reported Medications Reported Meds & Active Scripts Active Effient (Prasugrel) 10 Mg Tab 10 Mg PO DAILY [Aspirin Chew] 81 MG Chew 162 Mg PO DAILY Reported Tudorza Pressair Inh (Aclidinium Salyer Inh) 400 Mcg/Act Aerp 1 Puff INH BID Thera-M (Multiple Vitamins W/ Minerals) 1 Tab 1 Tab PO DAILY Mucus Relief (Guaifenesin) 400 Mg Tab 1 Tab PO DAILY Melatonin 5 Mg Tab 5 Mg PO HS Vitamin D3 (Cholecalciferol) 5,000 Unit Cap 5,000 Units PO DAILY Fluticasone Nasal [place] 50 Mcg/Act Naspr 50 Mcg EACH NARE BID 50 mcg/spray Benzonatate 200 Mg Cap 200 Mg PO TID PRN Ipratropium Neb (Ipratropium Salyer) 0.5 Mg/2.5 Ml Amp 0.5 Mg NEB Q6HR NEB PRN Atorvastatin (Atorvastatin Calcium) 10 Mg Tab 10 Mg PO HS Glimepiride 4 Mg Tab 4 Mg PO DAILY Take with breakfast or first main meal Latanoprost Opth Drops (Latanoprost) 0.005% Drops 1 Drop EACH EYE HS Refrigerate until opened. Calcium 1000 + D (Calcium Carbonate-Cholecalciferol) 1,000-800 Mg-Unit Tab 1 Tab PO DAILY Xanax (Alprazolam) 1 Mg Tab 1 Mg PO BID PRN Diltiazem CD 24 HR 300 Mg Caper 300 Mg PO DAILY Omeprazole 20 Mg Tab 20 Mg PO DAILY Flomax (Tamsulosin HCl) 0.4 Mg Cap 0.4 Mg PO HS Ventolin Hfa 18 GM Inh (Albuterol Sulfate) 90 Mcg/Act Aer 2 Puff INH Q4H PRN Advair Diskus Inh (Fluticasone-Salmeterol Inh) 250-50 Mcg/Blist Aer 1 Puff INH BID Rinse mouth after use. . Allergies: Coded Allergies: No Known Allergies (Verified , 11/28/13) Active Ordered Medications Current Medications Sodium Chloride (NS 500 ml Inj) 500 ml @ 500 mls/hr BOLUS ONCE IV Last administered on 09/17/16 21:45; Start 09/17/16 at 21:45; Stop 09/17/16 at 22:44 ; Status DC Sodium Chloride (NS Flush) 2 ml UNSCH PRN IV FLUSH FLUSH AFTER USING IV ACCESS ; Start 09/18/16 at 01:30 Sodium Chloride (NS Flush) 2 ml BID IV FLUSH ; Start 09/18/16 at 09:00 Naloxone HCl (Narcan Inj) 0.4 mg UNSCH PRN IV SEE LABEL COMMENTS; Start at 01:30 Tamsulosin HCl (Flomax) 0.4 mg ONCE ONCE PO Last administered on 09/18/16 03: 03; Start 09/18/16 at 02:15; Stop 09/18/16 at 02:16; Status DC Alprazolam (Xanax) 1 mg ONCE ONCE PO Last administered on 09/18/16t 03:03; Start 09/18/16 at 02:15; Stop 09/18/16 at 02:16; Status DC . Family History Brothers x 4 with CAD Sister CA Brother from complications r/t CVA . Social History Tobacco: smoking until May Alcohol: denies Illicit Drugs: denies . Physical Exam Vital Signs Vital Signs Date Time Temp Pulse Resp B/P Pulse Ox O2 Delivery O2 Flow Rate FiO2 09/18/16 03:10 80 09/18/16 02:25 97.9 81 18 145/66 98 147/62 113/57 09/18/16 00:15 98 Nasal Cannula 09/18/16 00:14 79 22 124/57 97 Nasal Cannula 2 09/17/16 20:43 98 Nasal Cannula 2 09/17/16 20:38 98.7 89 22 136/61 98 Physical Exam GENERAL: This is an elderly male patient, in no apparent distress wearing nasal c-pap from home. SKIN: No rashes, ecchymoses or lesions. Cool and dry. HEAD: Atraumatic. Normocephalic. EYES: No scleral icterus. No injection or drainage. ENT: Nose without bleeding, purulent drainage. NECK: Trachea midline. No JVD or lymphadenopathy. CARDIOVASCULAR: Regular rate and rhythm without murmurs, gallops, or rubs. RESPIRATORY: Clear to auscultation. Breath sounds equal bilaterally. No wheezes , rales, or rhonchi. GASTROINTESTINAL: Abdomen soft, non-tender, nondistended. No guarding. MUSCULOSKELETAL: Extremities without clubbing, cyanosis, or edema. No calf tenderness. NEUROLOGICAL: Awake and alert. Motor and sensory grossly within normal limits. . . Laboratory Laboratory Tests Test 09/17/16 20:50 White Blood Count 5.8 Red Blood Count 4.81 Hemoglobin 15.1 Hematocrit 43.9 Mean Corpuscular Volume 91.3 Mean Corpuscular Hemoglobin 31.3 Mean Corpuscular Hemoglobin 34.3 Concent Red Cell Distribution Width 13.6 Platelet Count 186 Mean Platelet Volume 8.5 Neutrophils (%) (Auto) 65.4 Lymphocytes (%) (Auto) 21.6 Monocytes (%) (Auto) 9.8 Eosinophils (%) (Auto) 2.8 Basophils (%) (Auto) 0.4 Neutrophils # (Auto) 3.8 Lymphocytes # (Auto) 1.3 Monocytes # (Auto) 0.6 Eosinophils # (Auto) 0.2 Basophils # (Auto) 0.0 CBC Comment DIFF FINAL Differential Comment Prothrombin Time 11.2 Prothromb Time International 1.0 Ratio Activated Partial 28.1 Thromboplast Time Sodium Level 142 Potassium Level 4.1 Chloride Level 109 Carbon Dioxide Level 25.3 Anion Gap 8 Blood Urea Nitrogen 19 Creatinine 1.82 Estimat Glomerular Filtration 36 Rate Random Glucose 108 Calcium Level 9.0 Magnesium Level 2.2 Total Bilirubin 0.3 Aspartate Amino Transf 21 (AST/SGOT) Alanine Aminotransferase 39 (ALT/SGPT) Alkaline Phosphatase 53 Total Creatine Kinase 90 Troponin I LESS THAN 0.02 B-Type Natriuretic Peptide 20 Total Protein 6.4 Albumin 3.4 Lipase 191 Thyroid Stimulating Hormone 2.550 3rd Gen Result Diagram: 09/17/16204909/17/162049 Imaging Last Impressions Head CT 09/17/162045 Signed Impressions: Service Date/Time: Saturday, September 17, 2016 20:59 - CONCLUSION: Negative noncontrast CT. Gaurang Aponte MD Chest X-Ray 09/17/162045 Signed Impressions: Service Date/Time: Saturday, September 17, 2016 21:22 - CONCLUSION: 1. Mild patchy opacity at the left lung base which could represent atelectasis or scarring. Infiltrate is also a consideration. 2. Hyperinflation consistent with underlying emphysema. Gaurang Aponte MD Cervical Spine CT 09/17/16 0000 Signed Impressions: Service Date/Time: Saturday, September 17, 2016 21:01 - CONCLUSION: 1. No acute fracture or malalignment. 2. Status post remote fusion which is solid at the C3-C6 level. Hypertrophic ridging is noted at the C3-4 and C5-6 levels with mass effect on the anterior thecal sac. 3. Degenerative disc changes C2-3 and C67 with mild disc osteophyte complexes. Gaurang Aponte MD . Assessment and Plan Assessment and Plan Irregular heart rate - patient with heart rate ranging from mild tachycardia to bradycardia - symptomatic with bradycardia - orthostatic hypotension noted on initial measurement of orthostatic vital signs - will check q4h and trend - continuous cardiac telemetry to monitor for further arrhythmia - consider cardiology consultation depending on outcome of monitoring Acute renal insufficiency - received ns IVF bolus of 500 ccs in ER - recheck bmp in a.m and follow results - avoid nephrotoxins Generalized weakness - PT consultation - appreciate assistance DVT prophylaxis - SCDs . Discussed Condition With ER physician, patient, RN Concetta Myers Sep 18, 2016 05:08
[2016-09-18] MEDS ORDERED: RESP: IPRATROPIUM 0.5 MG/2.5 ML NEB NEB PRN (05:15)
[2016-09-18] MEDS ORDERED: ALPRAZolam 1 MG TAB PO PRN (05:15)
[2016-09-18] MEDS ORDERED: SODIUM CHLOR 0.9% 1000 ML INJ 1,000 ML IV SCH (08:00)
[2016-09-18] MEDS ORDERED: DILTIAZEM-CD 300 MG CAP ER PO SCH (09:00)
[2016-09-18] MEDS ORDERED: ASPIRIN 81 MG CHEW TAB PO SCH (09:00)
[2016-09-18] MEDS ORDERED: PANTOPRAZOLE SOD 20 MG DELAYED RELEASE TAB PO SCH (09:00)
[2016-09-18] MEDS ORDERED: PRASUGREL 10 MG TAB PO SCH (09:00)
[2016-09-18] MEDS ORDERED: SODIUM CHLORIDE 0.9% FLUSH 10 ML FLUSH IV FLUSH SCH (09:00)
[2016-09-18] MEDS ORDERED: DEXTROSE 50% IN WATER 50 ML VIAL(D50) IV PRN (09:30)
[2016-09-18] MEDS ORDERED: GLUCAGON 1 MG/ML VIAL OTHER PRN (09:30)
[2016-09-18] MEDS ORDERED: [UNRECOGNIZED DRUG - OTHER] INH SCH (09:45)
[2016-09-18] MEDS ORDERED: ACLIDINIUM BROMIDE INH SCH (09:45)
--- NOTE | 2016-09-18 09:51 | HHI.PR ---
Subjective Remarks Follow-up for weakness with possible bradycardia. The patient states that he presented to the hospital because of weakness from low heart rate. He states that he was having intermittent episodes of weakness last night, and was measuring his heart rate with his home pulse oximeter. He states that every time his heart rate dropped to the 40s, he felt weak. He states [place] his heart rate dropped was 47. He has been in normal sinus rhythm since admission, and denies any recurrence of symptoms. Discussed with the patient and his over the phone. It does seem that the patient has been on diltiazem for quite some time for blood pressure. He denies any history of arrhythmia. They do believe that he was recently increased from 240 mg of diltiazem to 300 mg due to elevated blood pressure. The patient has COPD and sleep apnea, and is currently complaining of shortness of breath because he has been without his Tudorza, and states that that is the only thing that has worked. The patient states that since his heart catheterization with stent placement in May he has been less active and has had decreased appetite. He reports that he has gained 5 pounds since then. Otherwise, he has been tolerating diet here with no nausea. He denies any recent vomiting or diarrhea. He does not feel that he drinks enough. He does not want to stay in the hospital another night because he currently feels back to baseline and feels like he could monitor his heart rate at home. His compensation analyst is Dr. Stubbs. Objective Vitals Vital Signs Date Time Temp Pulse Resp B/P Pulse Ox O2 Delivery O2 Flow Rate FiO2 09/18/16 07:52 98.3 77 20 145/87 93 09/18/16 06:06 98.6 74 127/65 96 09/18/16 05:20 97 CPAP 2.50 09/18/16 03:10 80 09/18/16 02:25 97.9 81 18 145/66 98 147/62 113/57 09/18/16 00:15 98 Nasal Cannula 09/18/16 00:14 79 22 124/57 97 Nasal Cannula 2 09/17/16 20:43 98 Nasal Cannula 2 09/17/16 20:38 98.7 89 22 136/61 98 Result Diagram: 09/17/16204909/17/162049 Imaging Last Impressions Head CT 09/17/162045 Signed Impressions: Service Date/Time: Saturday, September 17, 2016 20:59 - CONCLUSION: Negative noncontrast CT. Gaurang Aponte MD Chest X-Ray 09/17/162045 Signed Impressions: Service Date/Time: Saturday, September 17, 2016 21:22 - CONCLUSION: 1. Mild patchy opacity at the left lung base which could represent atelectasis or scarring. Infiltrate is also a consideration. 2. Hyperinflation consistent with underlying emphysema. Gaurang Aponte MD Cervical Spine CT 09/17/16 0000 Signed Impressions: Service Date/Time: Saturday, September 17, 2016 21:01 - CONCLUSION: 1. No acute fracture or malalignment. 2. Status post remote fusion which is solid at the C3-C6 level. Hypertrophic ridging is noted at the C3-4 and C5-6 levels with mass effect on the anterior thecal sac. 3. Degenerative disc changes C2-3 and C67 with mild disc osteophyte complexes. Gaurang Aponte MD Objective Remarks GENERAL: Well-developed well-nourished obese. In no acute distress. SKIN: Warm and dry. No lesions noted. HEENT: Normocephalic. Pupils equal and round. Mucous membranes pink and moist. CARDIOVASCULAR: Regular rate and rhythm. No murmur appreciated. RESPIRATORY: No accessory muscle use. Clear to auscultation. Breath sounds equal bilaterally. GASTROINTESTINAL: Abdomen soft, non-tender, nondistended. Bowel sounds x4. MUSCULOSKELETAL: No obvious deformities. No clubbing or cyanosis. Trace edema. NEUROLOGICAL: Awake and alert. No focal neurological deficits. Moves upper and lower extremities spontaneously. Normal speech. PSYCHIATRIC: Appropriate mood and affect; insight and judgment normal. A/P Assessment and Plan 81-year-old male with past medical history of HTN, DM, CAD, COPD, LI, anxiety, GERD who presented with generalized weakness and possible bradycardia Irregular heart rate: The patient reports generalized weakness associated with heart rate 47 on home pulse oximetry monitor. Telemetry reviewed and shows NSR overnight. Possibly secondary to recent medication change with increase in diltiazem. - Decrease diltiazem extended release back to previous 240 mg dose. - continuous cardiac telemetry to monitor for further arrhythmia - If no further significant arrhythmias, Will place Holter monitor and recommend outpatient cardiology follow-up. ANGELLA: Creatinine 1.82, previously 1.15 on 05/26/16. Suspect secondary to poor oral intake. - Continue IVF - recheck bmp and follow results - avoid nephrotoxins Generalized weakness: Possibly secondary to dehydration, bradycardia, or orthostasis. - PT consultation - appreciate assistance - IVF - Decrease diltiazem as above - Monitor orthostatics - Repeat labs pending Diabetes mellitus: No signs of hypoglycemia. Hold home oral hypoglycemics. Monitor Accu-Cheks. SSI coverage. Hypertension: Reasonably controlled. With mild orthostasis. Recent Cardizem increase due to BP, decrease Cardizem as above. Continue tamsulosin. Add Hydralazine as needed. COPD/LI: Chronic does not appear to be in acute exacerbation. Resume home inhalers, caution with albuterol and palpitations. Continue CPAP at night. CAD: Chronic, stable. Continue Effient, statin, aspirin. Other chronic medical conditions including anxiety/insomnia, GERD, glaucoma: Stable at this time and will continue home medications as indicated. DVT prophylaxis - SCDs Discharge Planning Follow-up labs. Monitor telemetry. Plan of care discussed with Dr. Ward. 1300 patient reassessed with at bedside. Patient remains asymptomatic, no further episodes of weakness. Telemetry remains unremarkable. The patient ambulated with PT and reports no lightheadedness or dizziness. Signs of dehydration improved on repeat labs after IVF, encouraged oral hydration. The patient is asking for discharge today and we believe this is reasonable. Decrease Cardizem and add hydralazine as needed for hypertension until PCP and cardiology follow-up. Patient instructed on home blood pressure monitoring. Place Holter monitor for continued heart rate monitoring and follow -up with PCP and cardiology for results. Encouraged hydration. Patient and offered home health care and decline. Discharge home today in stable condition. Lázaro Carrasquillo Sep 18, 2016 09:51
[2016-09-18] MEDS ORDERED: BUDESONIDE-FORMOTEROL 160/4.5 MCG INHALER INH SCH (10:00)
[2016-09-18] MEDS ORDERED: hydrALAZINE HCL 25 MG TAB PO PRN (10:00)
[2016-09-18] MEDS ORDERED: INSULIN ASPART SUPPLEMENTAL SCALE SQ SCH (11:00)
[2016-09-18 12:09] LABS: ANION GAP 6 MEQ/L (5-15); BICARBONATE 26.6 MEQ/L (21.0-32.0); BLOOD UREA NITROGEN 19 MG/DL (7-18); CHLORIDE 109 MEQ/L (98-107); GLOMERULAR FILTRATION RATE 53 ML/MIN (>89); POTASSIUM 4.2 MEQ/L (3.5-5.1); SODIUM (NA) 142 MEQ/L (136-145)
[2016-09-18] MEDS ORDERED: CARD240C6 PO (13:09)
[2016-09-18] MEDS ORDERED: HYDR-3799 PO (13:09)
--- NOTE | 2016-09-18 17:21 | EKG ---
Date Performed: 09/17/2016 Time Performed: 20:38:19 PTAGE: 81 years EKG: Sinus rhythm WITH OCCASIONAL SUPRAVENTRICULAR PREMATURE COMPLEXES BORDERLINE ECG PREVIOUS TRACING : 05/26/2016 06.40 Compared to prior tracing no significant change DOCTOR: Alok Magaña Interpretating Date/Time 09/18/2016 17:19:31
[2016-09-18] MEDS ORDERED: ATORVASTATIN 10 MG TAB PO SCH (21:00)
[2016-09-18] MEDS ORDERED: TAMSULOSIN HCL 0.4 MG CAP PO SCH (21:00)
[2016-09-18] MEDS ORDERED: LATANOPROST 0.005% OPHT SOLN 2.5 ML BTL EACH EYE SCH (21:00)
[2016-09-18] MEDS ORDERED: MELATONIN 5 MG TAB PO SCH (21:00)
[2016-09-19] MEDS ORDERED: DILTIAZEM-CD 240 MG CAP ER PO SCH (09:00)
--- NOTE | 2016-09-20 08:13 | HM ---
Date Performed: 09/18/2016 Time Performed: 15:25:00 HOOKUP DATE: 09/18/16 03:25:00 PM Tue ANALYSIS START TIME: 09/18/2016 3:30:00 PM ANALYSIS END TIME: 09/19/2016 2:39:00 PM PATIENT AGE: 81 PATIENT HEIGHT PATIENT WEIGHT DRUG LIST PATIENT DIAGNOSIS: bradycardia TEST NARRATIVE: The patient's average heart rate was 80 BPM. Heart rates greater than 120 B PM were noted < 1% of the time. No episodes of bradycardia were noted. No pauses exceeding 2.0 s econds were noted. 10 ventricular ectopics, which represented < 1% of the total beat count, were noted. The highest ventricular ectopic frequency occurred from 09:00 PM to 10:00 PM Tue. During thi s time 5 VE(s) occurred. Ventricular ectopics were observed as 5 isolated beat(s), as 1 couplet(s) a nd as 1 run(s). 48 supraventricular ectopics, which represented < 1% of the total beat count, wer e noted. The highest supraventricular ectopic frequency occurred from 06:00 AM to 07:00 AM Wed. Dur ing this time 9 SVE(s) occurred. No episodes of ST depression (defined as -1.0 mm or more) were n oted in channel 1. No episodes of ST depression (defined as -1.0 mm or more) were noted in channel 2 . No episodes of ST depression (defined as -1.0 mm or more) were noted in channel 3. TEST INTERPRETATION: Benign Holter Signed by : Lawrence Lees
== END 2016-09-18 16:21 | disposition home or self-care (01) ==
LOC: NEPE 20:24 → NEDA 09-18 00:01 → NEPHCDU 09-18 02:17
PROVIDERS: ADMIT Hospitalist; ATTEND Hospitalist
DX: R00.0 Tachycardia, unspecified (principal); R00.1 Bradycardia, unspecified; I95.1 Orthostatic hypotension; N28.9 Disorder of kidney and ureter, unspecified; R53.1 Weakness; R06.00 Dyspnea, unspecified; M79.1 Myalgia; R05 Cough; I49.1 Atrial premature depolarization; E86.0 Dehydration; R63.0 Anorexia; R06.02 Shortness of breath; R91.8 Other nonspecific abnormal finding of lung field; R51 Headache; M54.2 Cervicalgia; M79.601 Pain in right arm; I25.10 Atherosclerotic heart disease of native coronary artery without angina pectoris; I10 Essential (primary) hypertension; J44.9 Chronic obstructive pulmonary disease, unspecified; E11.9 Type 2 diabetes mellitus without complications; G47.33 Obstructive sleep apnea (adult) (pediatric); M25.78 Osteophyte, vertebrae; M50.31 Other cervical disc degeneration, high cervical region; M50.323 Other cervical disc degeneration at C6-C7 level; E78.00 Pure hypercholesterolemia, unspecified; K21.9 Gastro-esophageal reflux disease without esophagitis; F41.9 Anxiety disorder, unspecified; N40.0 Benign prostatic hyperplasia without lower urinary tract symptoms; G47.00 Insomnia, unspecified; H40.9 Unspecified glaucoma; M19.90 Unspecified osteoarthritis, unspecified site; Z99.81 Dependence on supplemental oxygen; Z98.1 Arthrodesis status; Z95.5 Presence of coronary angioplasty implant and graft; Z79.899 Other long term (current) drug therapy; Z79.82 Long term (current) use of aspirin; W19.XXXA Unspecified fall, initial encounter; W22.8XXA Striking against or struck by other objects, initial encounter
CPT/HCPCS: 70450; 71010; 72125; 80048; 80053; 82550; 82948; 83690; 83735; 83880; 84443; 84484; 85025; 85610; 85730; 93005; 93225; 93226; 97163; 99285; G0378; G8987; G8988; J7030; J7040